=== PATIENT | female | born 1975 | race African-American/Black ===

== ENCOUNTER 2020-09-30 08:21 | Emergency (ER) | payer SELFPAY ==
[~2020-09-30] VITALS: Ht 170.2 cm; Wt 68.0 kg
[2020-09-30 08:22] VITALS: BP 105/73
[2020-09-30] MEDS ORDERED: ACETAMINOPHEN/CODEINE 300/30MG TABLET PO ONE (09:00)
--- NOTE | 2020-09-30 09:00 | PHYS DOC ---
Past History Past Medical History: Asthma Past Surgical History: Other Additional Past Surgical Histo: l arm Alcohol Use: None General Adult EDM: Chief Complaint: POST-OP PROBLEM HPI: HPI: Patient is a 45-year-old female coming in for a "follow-up" for a left forearm fracture with external fixator that was placed August 24. Patient states she had a procedure done in [place] and had her 4-week follow-up but is now living in a snf here and does not have an orthopedic surgeon. Patient denies any new trauma to the arm or worsening pain. Patient also stating that she ran out of her oxycodone pain medications. Has not taken anything [id number] for pain today Review of Systems: Review of Systems: All other systems within normal limits except for as noted in the HPI Current Medications: Current Meds: Current Medications Medications (Trade) Dose Ordered Sig/Italo Start Time Stop Time Status Last Admin Dose Admin Acetaminophen/ Codeine Phosphate (Tylenol #3) 1 tab 1X ONCE 09/30/20 09:00 09/30/20 09:01 UNV Allergies: Allergies: Allergies Coded Allergies Type Severity Reaction Last Updated Verified No Known Drug Allergies 09/30/20 No Physical Exam: PE: Constitutional: Well developed, well nourished, no acute distress, non-toxic appearance. [] HENT: Normocephalic, atraumatic, bilateral external ears normal, nose normal. [] Eyes: PERRLA, conjunctiva normal, no discharge. [] Neck: No rigidity, supple, no stridor. [] Cardiovascular: Regular rate and rhythm, brisk cap refill [] Lungs & Thorax: Non labored symmetric respirations, no tachypnea or respiratory distress [] Abdomen: Soft, nondistended. Skin: Warm, dry, no erythema, no rash no signs of infection Clean bandage [] Extremities: No deformities, range of motion grossly intact, no lower extremity edema fixer device left forearm, fair range of motion of fingers [] Neurologic: Alert and oriented X 3, no focal deficits noted. [] Psychologic: Affect normal, judgement normal, mood normal. [] Current Patient Data: Vital Signs: Vital Signs Date Time Temp Pulse Resp B/P (MAP) Pulse Ox O2 Delivery O2 Flow Rate FiO2 09/30/20 08:22 97.9 80 16 105/73 (84) 99 Room Air EKG: EKG: [] Radiology/Procedures: Radiology/Procedures: Left forearm 2 views INDICATION: Hardware issue COMPARISON: None currently available. FINDINGS: AP and lateral views of the left forearm show external fixation of the left forearm and wrist with fixation screws in the radial shaft and second metacarpal shaft. There is also internal fixation of a comminuted intra-articular distal radial fracture with 2 plate and screw constructs, as well as external fixation with 2 K wires screws through the radial styloid process. The bones are demineralized little callus formation seen. Alignment is near- anatomic. The wrist soft tissues are swollen, primarily on the radial aspect. No abnormal soft tissue gas is seen. No unexpected radiopaque foreign body. There is cast material over the ulnar sided forearm and wrist. IMPRESSION: Internal and external fixation of a comminuted intra-articular distal left ra dial fracture as described with demineralization and little callus formation but near-anatomic alignment. [] Heart Score: Risk Factors: Risk Factors: DM, Current or recent (<one month) smoker, HTN, HLP, family history of CAD, obesity. Risk Scores: Score 0 - 3: 2.5% MACE over next 6 weeks - Discharge Home Score 4 - 6: 20.3% MACE over next 6 weeks - Admit for Clinical Observation Score 7 - 10: 72.7% MACE over next 6 weeks - Early Invasive Strategies Course & Med Decision Making: Course & Med Decision Making Informed patient that we not refill narcotic medications in the emergency department, given information on how to obtain orthopedic follow-up. [] Dragon Disclaimer: Dragon Disclaimer: This electronic medical record was generated, in whole or in part, using a voice recognition dictation system. Departure Departure: Impression: Primary Impression: Orthopedic aftercare Disposition: 01 DC HOME SELF CARE/HOMELESS Condition: STABLE Referrals: PCP,NO (PCP) [facility] Patient Instructions: Cast or Splint Care Additional Instructions: Dr. Evaristo Wadsworth for orthopedic follow-up in [place]: [address] [place] [address] [facility] for primary care follow-up Address: [address], [place] [address] Scripts Acetaminophen With Codeine (ACETAMINOPHEN-COD #4 TABLET) 1 Each Tablet 1 EACH PO PRN Q6-8HRS PRN for PAIN for 3 Days, #10 TAB Prov: KHUSHBU LOPEZ MD 09/30/20 KHUSHBU LOPEZ MD Sep 30, 2020 08:59
--- NOTE | 2020-09-30 09:38 | RAD ---
Left forearm 2 views INDICATION: Hardware issue COMPARISON: None currently available. FINDINGS: AP and lateral views of the left forearm show external fixation of the left forearm and wrist with fi xation screws in the radial shaft and second metacarpal shaft. There is also internal fixation of a comminuted intra-articular distal radial fracture with 2 plate a nd screw constructs, as well as external fixation with 2 K wires screws through the radial styloid pr ocess. The bones are demineralized little callus formation seen. Alignment is near-anatomic. The wrist soft tissues are swollen, primarily on the radial aspect. No abnormal soft tissue gas is se en. No unexpected radiopaque foreign body. There is cast material over the ulnar sided forearm and wrist. IMPRESSION: Internal and external fixation of a comminuted intra-articular distal left radial fracture as describ ed with demineralization and little callus formation but near-anatomic alignment. Electronically signed by: Glenda Rico MD (09/30/2020 9:36 AM) [facility] [place]
[2020-09-30] MEDS ORDERED: ACET-1871 PO (09:48)
== END 2020-09-30 10:00 | disposition home or self-care (01) ==
LOC: ER 08:21
DX: Z47.89 Encounter for other orthopedic aftercare (principal); J45.909 Unspecified asthma, uncomplicated
CPT/HCPCS: 73090; 99283